=== PATIENT | male | born 1995 | race Caucasian/White ===

== ENCOUNTER 2017-11-21 04:15 | Emergency (ER) | payer OTHER, BC ==
[2017-11-21 05:30] LABS: ADD MAN DIFF? NO
[2017-11-21 05:32] LABS: WHITE BLOOD COUNT 12.4 10^3/ul (4.8-10.8)
[2017-11-21 05:32] LABS: ABNORMAL IP MESSAGE 1; BASOPHIL # 0.1 10^3/ul (0.0-0.1); BASOPHILS % 0.5 % (0.0-2.0); EOSINOPHILS # 0.1 10^3/ul (0.0-0.5); EOSINOPHILS % 0.7 % (0.0-7.0); HEMATOCRIT 45.8 % (42.0-52.0); HEMOGLOBIN 15.7 g/dl (14.0-18.0); LYMPHOCYTES # 5.8 10^3/ul (0.8-2.9); LYMPHOCYTES % 46.6 % (15.0-51.0); MEAN CORPUSCULAR HEMOGLOBIN 29.2 pg (29.0-33.0); MEAN CORPUSCULAR HGB CONC 34.3 g/dl (32.0-37.0); MEAN CORPUSCULAR VOLUME 85.1 fl (82.0-101.0); MEAN PLATELET VOLUME 9.9 fl (7.4-10.4); MONOCYTE # 0.7 10^3/ul (0.3-0.9); MONOCYTES % 5.7 % (0.0-11.0); NEUTROPHIL # 5.7 10^3/ul (1.6-7.5); PLATELET COUNT 419 10^3/UL (140-415); POSITIVE DIFF @See below; RED BLOOD COUNT 5.38 10^6/ul (4.70-6.10); RED CELL DISTRIBUTION WIDTH 13.6 % (11.5-14.5)
[2017-11-21 05:53] LABS: INR 0.89; PARTIAL THROMBOPLASTIN TIME 31.2 Sec (25.0-35.0); PROTIME 12.1 Sec (11.9-14.9); PT RATIO 0.9
[2017-11-21 05:56] LABS: AMPHETAMINE/METHAMPHETAMINE Negative (NEGATIVE); BARBITURATES Negative (NEGATIVE); BENZODIAZEPINES Negative (NEGATIVE); CANNABINOIDS Negative (NEGATIVE); COCAINE Negative (NEGATIVE); OPIATES Negative (NEGATIVE)
[2017-11-21 06:12] LABS: ALANINE AMINOTRANSFERASE 42 IU/L (13-69); ALKALINE PHOSPHATASE 100 IU/L (42-121); ANION GAP 21 (8-16); ASPARTATE AMINO TRANSFERASE 27 IU/L (15-46); BLOOD UREA NITROGEN 10 mg/dl (7-20); CALCIUM 9.7 mg/dl (8.4-10.2); CARBON DIOXIDE 25 mmol/L (21-31); CHLORIDE 108 mmol/L (97-110); CREATININE 1.12 mg/dl (0.61-1.24); GLUCOSE 112 mg/dl (70-220); POTASSIUM 3.6 mmol/L (3.5-5.1); SODIUM 150 mmol/L (135-144); TOTAL PROTEIN 8.2 g/dl (6.1-8.1)
[2017-11-21] MEDS: SOD CHLORIDE 0.9% 1,000 ML IV ×2 (06:35→09:30)
[2017-11-21] MEDS: morphine 4 MG/ML VIAL IV (06:39)
[2017-11-21] MEDS: IOHEXOL 300MG/ML 150 ML BTL (08:54)
[2017-11-21] MEDS: SOD CHLORIDE 0.9% 100 ML (08:55)
[2017-11-21] MEDS: HYDROmorphONE 0.5 MG/0.5 ML SYG IV (10:38)
[2017-11-21] MEDS: ONDANSETRON 4 MG INJ IV (10:38)
== END 2017-11-21 15:34 | disposition home or self-care (01) ==
LOC: E/R 04:15
DX: S09.93XA Unspecified injury of face, initial encounter (principal); S16.1XXA Strain of muscle, fascia and tendon at neck level, initial encounter; F10.920 Alcohol use, unspecified with intoxication, uncomplicated; D72.829 Elevated white blood cell count, unspecified; D47.3 Essential (hemorrhagic) thrombocythemia; E87.0 Hyperosmolality and hypernatremia; J45.909 Unspecified asthma, uncomplicated; F17.210 Nicotine dependence, cigarettes, uncomplicated; R51 Headache; V89.2XXA Person injured in unspecified motor-vehicle accident, traffic, initial encounter
CPT/HCPCS: 29125; 70450; 71045; 71260; 72125; 73060; 73090; 74177; 80048; 80076; 80306; 80307; 85025; 85610; 85730; 93005; 96374; 96375; 99285-25